=== PATIENT | female | born 1940 | race Caucasian/White ===

== ENCOUNTER 2016-11-01 20:53 | Emergency (ER) | payer OTHER, MEDICAID ==
[~2016-11-01 20:53] MED LIST: ESCITALOPRAM10 M1 PO
[2016-11-01 21:07] VITALS: BP 142/73
== END 2016-11-01 21:41 | disposition home or self-care (01) ==
LOC: ED 20:53
DX: L50.9 Urticaria, unspecified (principal); T78.40XA Allergy, unspecified, initial encounter; X58.XXXA Exposure to other specified factors, initial encounter
CPT/HCPCS: Q0163